=== PATIENT | male | born 1950 | race Caucasian/White ===

== ENCOUNTER 2021-05-25 12:55 | Day surgery (SDC) | payer MEDICARE, BC ==
[~2021-05-25] VITALS: Ht 172.7 cm; Wt 77.7 kg
[2021-05-25 13:06] VITALS: BP 166/101
[2021-05-25] MEDS ORDERED: MIDAZolam 1 MG/ML 5ML VIAL ONE (13:19)
[2021-05-25] MEDS ORDERED: fentaNYL/PF 50MCG/1 ML 2ML syringe ONE (13:19)
[2021-05-25] MEDS ORDERED: LISI10TA27 PO (13:30)
[2021-05-25] MEDS ORDERED: OMEGA3 PO (13:32)
[2021-05-25] MEDS ORDERED: ROSU5TAB PO (13:32)
[2021-05-25 14:40] VITALS: BP 144/87
[2021-05-25 14:50] VITALS: BP 132/85
[2021-05-25 15:00] VITALS: BP 134/82
[2021-05-25 15:10] VITALS: BP 130/84
== END 2021-05-25 15:30 | disposition home or self-care (01) ==
LOC: GI LAB 12:55
PROVIDERS: ATTEND Internal Medicine Gastroenterology
DX: Z12.11 Encounter for screening for malignant neoplasm of colon (principal); K57.30 Diverticulosis of large intestine without perforation or abscess without bleeding; K64.8 Other hemorrhoids; D12.3 Benign neoplasm of transverse colon; D12.8 Benign neoplasm of rectum; I10 Essential (primary) hypertension; Z79.899 Other long term (current) drug therapy; Z96.612 Presence of left artificial shoulder joint; Z96.651 Presence of right artificial knee joint; Z86.010 Personal history of colon polyps
CPT/HCPCS: 45385; 99153; C1773; G0500; J2250; J3010; J7040; Z7512; 88305; 99152; A4620

== ENCOUNTER 2025-01-02 10:42 | Outpatient (CLI) | payer MEDICARE, BC ==
[~2025-01-02 10:42] MED LIST: LISI10TA27 PO; OMEGA3 PO; ROSU5TAB PO
--- NOTE | 2025-01-03 02:38 | CONSULTATION ---
DATE OF CONSULTATION: 01/02/2025 DICTATING PHYSICIAN: Nani Prabhakar M.S., [facility]-PCAT INSTRUCTOR MODIFIED BARIUM SWALLOW STUDY REPORT REFERRING PHYSICIAN: Griffin Toney MD HISTORY OF PRESENT ILLNESS: The patient is a 74-year-old male and consents to this evaluation. History was obtained from the patient and medical records. The patient reports symptoms of dysphagia including coughing on food and liquids whenever he is eating and drinking. He reports that this has been going on for about 5 months or so. 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 This was approximately 5 years ago and he had received radiation at that time. The patient was seen for a flexible fiberoptic laryngoscopy on 12/11/2024, by Dr. Griffin Toney, ENT, which revealed normal CAPACITY ANALYST/OP/BOT/HP/larynx with no mass or lesion. The patient reports that he had a feeding tube at the time of his radiation 5 years ago and that his daughter's friend was an PCAT INSTRUCTOR and had taught him a little bit of swallowing exercises at that time. Currently, he reports xerostomia and that he can only have soft foods. He cannot have meat such as chicken or beef as these are difficult to break down and then swallow. CURRENT DIET: A typical breakfast consists of eggs. He does not have snacks throughout the day, but then will have a dinner of either can of soup, chili, or cereal. MEDICATIONS: Fish oil 1000 mg, pantoprazole 40 mg delayed release, lisinopril 10 mg, levothyroxine 40 mg. PARAMETERS: The patient is seated in a lateral 90-degree view and administered the usual protocol of thin and nectar thick liquids, puree and solid consistencies, as well as self-regulated boluses of thin liquids from the cup. RESULTS: In the oral stage of the swallow, lingual strength was noted to be mild to moderately reduced. There was a mild to moderate oral residue following the initial swallow of boluses. In the pharyngeal stage of the swallow, swallow initiation was delayed to the level of the piriformis due to poor control of bolus in the oral cavity. Tongue base retraction was moderately reduced. Elevation of the hyothyroid complex was accomplished with mild to moderately reduced epiglottic inversion, and moderately reduced anterior and superior movement of the hyoid. There was a moderate pharyngeal residue noted after the initial tail of the bolus passed and PES opening was mildly reduced. It was noted that the patient demonstrated with aspiration with patient demonstrating spontaneous clearing of the aspiration on the 1 mL, 3 mL, and 5 mL thin liquid boluses, and then on the self-regulated bolus of thin liquid from a cup. Aspiration was noted to be less than 10% of the bolus. It was noted that the patient would do well in terms of airway safety when he was holding his breath, but that once the epiglottis returned to its resting position when he would go to take a breath, but that was when he would aspirate on the residue of the bolus. ANTERIOR, POSTERIOR VIEW: In the AP plane, the bolus was split symmetrically between the piriform sinuses and there was no proximal movement noted. 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 He was noted to have aspiration on all of the thin liquid boluses. DIAGNOSES: R13.12, dysphagia, oropharyngeal phase, C02.9, malignant neoplasm of the tongue. PATIENT EDUCATION: Immediately following modified barium swallow study, the patient was able to view the results. The patient was able to see how the current status of the oral motor and swallowing mechanism decreased his ability to swallow normally. He was educated on a recommendation to hold his breath and swallow at least x 2 before taking that next breath in order to decrease the amount of aspiration that occurred. He was also educated on a recommendation for speech therapy services to strengthen the muscles involved in swallowing and agreed to participate at this time. RECOMMENDATIONS: 1. It is recommended that the patient receive swallowing therapy 1 time weekly for 12 weeks to improve the strength and range of motion of the swallowing musculature to ensure airway safety protection and prevent aspiration. 2. It is recommended that the patient utilize the safe swallowing strategy of breath hold maneuver and swallow x 2. LONG-TERM GOALS: The patient will maintain adequate hydration/nutrition with optimum safety and efficiency of swallow function on p.o. intake with overt signs and symptoms of aspiration decreased from every time that he is swallowing his liquids to once daily. PROGNOSIS: Prognosis for the patient is fair to good considering patient motivation, willingness to learn, and length of time passed since the radiation. FUNCTIONAL ORAL INTAKE: The FOIS was administered to establish and document a change in the functional eating activities of this patient over time. This is a 7-point scale with 1 indicating no oral intake and totally tube dependent and 7 indicating total oral intake with no restrictions. This patient received a 6, which indicates total oral intake with multiple consistencies without special preparation, but with specific food limitations and precautions. G-CODE: [id number]. Thank you very much for asking me to participate in the care of this kind patient. Should you have any questions regarding this evaluation or recommendations, please do not hesitate to contact me at [phone]. During this examination, 3.09 minutes of fluoroscopy time and 14.46 CAK mGy were utilized. Nani Prabhakar M.S., [facility]-PCAT INSTRUCTOR TID: [id number] RECEIPT: [id number] CHRISTIANO SHELLEY
== END 2025-01-02 23:59 | disposition home or self-care (01) ==
LOC: RAD 10:42
PROVIDERS: ATTEND Otolaryngology
DX: R13.12 Dysphagia, oropharyngeal phase (principal); G70.00 Myasthenia gravis without (acute) exacerbation; C02.9 Malignant neoplasm of tongue, unspecified; K22.2 Esophageal obstruction
CPT/HCPCS: 74230